=== PATIENT | female | born 1980 | race Caucasian/White ===

== ENCOUNTER → 2023-01-03 13:58 | Outpatient (BNVA) | payer MEDICARE, MEDICAID, SELFPAY | PROVIDERS: Family Provider Nurse Practitioner; Visit Provider Nurse Practitioner Family | DX: E78.5 Hyperlipidemia, unspecified (principal); E03.9 Hypothyroidism, unspecified; I10 Essential (primary) hypertension | CPT/HCPCS: 80053; 80061; 84443; 85025 ==

== ENCOUNTER → 2023-04-12 11:16 | Outpatient (BNVA) | payer MEDICARE, MEDICAID, SELFPAY | PROVIDERS: Family Provider Nurse Practitioner; PCP Nurse Practitioner Family; Visit Provider Nurse Practitioner Family | DX: E78.5 Hyperlipidemia, unspecified (principal); I10 Essential (primary) hypertension | CPT/HCPCS: 80053; 80061; 84443; 85025 ==

== ENCOUNTER → 2023-06-02 11:29 | Outpatient (BNVA) | payer MEDICARE, MEDICAID, SELFPAY | PROVIDERS: PCP Nurse Practitioner Family; Visit Provider Nurse Practitioner Family | DX: M79.89 Other specified soft tissue disorders (principal); R23.8 Other skin changes | CPT/HCPCS: 80053; 85025 ==

== ENCOUNTER 2023-06-27 15:33 | Outpatient (CLI) | payer MEDICARE, MEDICAID, SELFPAY ==
--- NOTE | 2023-06-27 15:45 | XRR_ITS ---
PROCEDURE INFORMATION: Exam: XR Cervical Spine Exam date and time: 06/27/2023 3:52 PM Age: 42 years old Clinical indication: Pain; Cervicalgia; Additional info: M54.2 - cervicalgia TECHNIQUE: Imaging protocol: Radiologic exam of the cervical spine. Views: 2 or 3 views. COMPARISON: CR XR shoulder RT min 2V* [id number] 06/27/2023 3:52 PM FINDINGS: Bones/joints: Normal. No acute fracture. Normal alignment. Soft tissues: Unremarkable. XR/XR cervical spine 3V* [id number] IMPRESSION: No acute findings.
--- NOTE | 2023-06-27 15:45 | XRR_ITS ---
PROCEDURE INFORMATION: Exam: XR Right Shoulder Exam date and time: 06/27/2023 3:52 PM Age: 42 years old Clinical indication: Pain; Shoulder; Right; Additional info: M25.511 - pain in right shoulder TECHNIQUE: Imaging protocol: Radiologic exam of the right shoulder. Views: 2 or more views. COMPARISON: CR XR cervical spine 3V* [id number] 06/27/2023 3:52 PM FINDINGS: Bones/joints: Mild arthritis right AC joint. Otherwise, unremarkable. Soft tissues: Normal. XR/XR shoulder RT min 2V* [id number] IMPRESSION: No acute findings.
== END 2023-06-27 15:34 | disposition home or self-care (01) ==
LOC: RAD 15:34
PROVIDERS: PCP Nurse Practitioner Family; Visit Provider Nurse Practitioner Family
DX: M54.2 Cervicalgia (principal); G89.29 Other chronic pain; R20.0 Anesthesia of skin; M25.511 Pain in right shoulder
CPT/HCPCS: 72040; 73030

== ENCOUNTER 2023-07-08 17:22 | Emergency (ER) | payer MEDICARE, MEDICAID, SELFPAY ==
[2023-07-08 17:26] VITALS: BP 115/78; PULSE 86; RESP 18; TEMP 38; O2SAT 100
--- NOTE | 2023-07-08 17:47 | ED_ITS ---
HPI - Fever 2 General: Chief Complaint: Fever Stated Complaint: fever, weakness, N Time Seen by Provider: 07/08/23 17:44 History of Present Illness: 42-year-old female who presents the [facility] room with a fever. She has not been feeling well for about a week now she says. Some mild nausea but she states has been drinking lots of water. She says she feels constipated. No focal abdominal pain. Family states that she seems kind of confused. Has been having malaise. Review of Systems 2 Narrative: Constitutional symptoms: Negative except as documented in HPI. Skin symptoms: Negative except as documented in HPI. Eye symptoms: Negative except as documented in HPI. ENMT symptoms: Negative except as documented in HPI. Respiratory symptoms: Negative except as documented in HPI. Cardiovascular symptoms: Negative except as documented in HPI. Gastrointestinal symptoms: Negative except as documented in HPI. Genitourinary symptoms: Negative except as documented in HPI. Musculoskeletal symptoms: Negative except as documented in HPI. Neurologic symptoms: Negative except as documented in HPI. Psychiatric symptoms: Negative except as documented in HPI. Endocrine symptoms: Negative except as documented in HPI. PFSH ED 2 PFSH: Medical History Hypothyroid PTSD (post-traumatic stress disorder) Anxiety and depression Hyperlipidemia GERD (gastroesophageal reflux disease) Essential hypertension Surgical History History of tonsillectomy and adenoidectomy History of nasal surgery History of mandibular surgery Hx of appendectomy Social History Smoking and tobacco/nicotine status: current every day tobacco/nicotine user Alcohol intake: never Substance/Drug Use: current Substance/Drug use frequency: daily Adopted: No Caregiver/support person: No Lives independently: Yes Household members: family Housing: House Marital status: Single Number of children: 0 Highest education level completed: 10th Grade service: No Current occupational status: disabled Female Reproductive History: Date of last menstrual period: 06/07/23 Physical Exam 2 Narrative: EXAM NARRATIVE: General: Alert, no acute distress. Skin: Warm, dry. Head: Normocephalic, atraumatic. Neck: Supple, trachea midline. Eye: Extraocular movements are intact. Ears, nose, mouth and throat: mucosa moist. Cardiovascular: Regular, Normal peripheral perfusion. Respiratory: Lungs are clear to auscultation, respirations are non-labored, breath sounds are equal, Symmetrical chest wall expansion. Gastrointestinal: Soft, Nontender, Non distended, Normal bowel sounds. Musculoskeletal: Normal ROM, no deformity. Neurological: Alert and oriented to person, place, time, and situation, No focal neurological deficit observed. Psychiatric: Cooperative, appropriate mood & affect. Course 2 Vital Signs: Vital signs: Vital Signs Temperature 100.4 F H 07/08/23 17:26 Pulse Rate 82 07/08/23 18:45 Respiratory Rate 16 07/08/23 18:45 Blood Pressure 113/67 07/08/23 18:45 Pulse Oximetry 100 07/08/23 18:45 Oxygen Delivery Me thod Room Air 07/08/23 17:26 MDM - Fever Medical Decision Making Medical decision making: Differential diagnosis including but not limited to: Febrile illness might include UTI, pneumonia, flu, COVID, other viral illness.. Workup based on differential diagnosis: Chest x-ray, flu and COVID swabs, urinalysis. Patient access some mild leukopenia which might indicate more of a viral illness. However her urine does appear infected. She also appears dehydrated on exam. Fluids and Rocephin are being given. Chest x-ray: No acute process. No pneumothorax. No infiltrate. No cardiomegaly. This was reviewed and interpreted by myself the ER physician. Lab Data 07/08/23 17:52 07/08/23 17:52 Radiology Impressions Chest X-Ray 07/08/23 18:10 IMPRESSION: No acute findings. Laboratory Results WBC 2.90 10^3/uL (3.29-11.43) L 07/08/23 17:52 RBC 4.59 10^6/uL (3.85-5.65) 07/08/23 17:52 Hgb 14.90 g/dL (11.27-16.99) 07/08/23 17:52 Hct 44.3 % (36-47) 07/08/23 17:52 MCV 96.5 fl (85-98) 07/08/23 17:52 MCH 32.5 pg (27-33) 07/08/23 17:52 MCHC 33.6 g/dL (30-55) 07/08/23 17:52 RDW 14.0 % (12.1-15.1) 07/08/23 17:52 Plt Count 182 10^3/cmm (157-399) 07/08/23 17:52 MPV 12.3 fL (7.4-10.4) H 07/08/23 17:52 Neut % (Auto) 65.3 % 07/08/23 17:52 Lymph % (Auto) 31.0 % 07/08/23 17:52 [place] % (Auto) 2.4 % 07/08/23 17:52 Eos % (Auto) 0.3 % 07/08/23 17:52 Baso % (Auto) 0.3 % 07/08/23 17:52 Neut # (Auto) 1.89 10^3/uL (1.8-7.7) 07/08/23 17:52 Lymph # (Auto) 0.9 10^3/uL (0.8-4.8) 07/08/23 17:52 [place] # (Auto) 0.1 10^3/uL (0.2-0.9) L 07/08/23 17:52 Eos # (Auto) 0.0 10^3/uL (0.0-0.8) 07/08/23 17:52 Baso # (Auto) 0.0 10^3/uL (0.0-0.1) 07/08/23 17:52 Nucleated RBC % (auto) 0 % 07/08/23 17:52 Nucleated RBCs # 0.0 /100WBC 07/08/23 17:52 Sodium 134 mmol/L (136-145) L 07/08/23 17:52 Potassium 3.6 mmol/L (3.5-5.1) 07/08/23 17:52 Chloride 97 mmol/L (98-107) L 07/08/23 17:52 Carbon Dioxide 25 mmol/L (22-29) 07/08/23 17:52 Anion Gap 15.6 (5-19) 07/08/23 17:52 BUN 10 mg/dL (6-20) 07/08/23 17:52 Creatinine 0.7 mg/dL (0.5-0.9) 07/08/23 17:52 GFR Calculation 90.9 mL/min (90-130) 07/08/23 17:52 Glucose 90 mg/dL (65-115) 07/08/23 17:52 Calculated Osmolality 277 mOsm/kg (285-295) L 07/08/23 17:52 Calcium 8.6 mg/dL (8.5-10.5) 07/08/23 17:52 Total Bilirubin 0.2 mg/dL (0.15-1.2) 07/08/23 17:52 AST 25 U/L (0-32) 07/08/23 17:52 ALT 14 U/L (0-33) 07/08/23 17:52 Alkaline Phosphatase 168 U/L (35-105) H 07/08/23 17:52 Total Protein 7.5 g/dL (6.6-8.7) 07/08/23 17:52 Albumin 4.1 g/dL (3.5-5.2) 07/08/23 17:52 Globulin 3.4 g/dL (1.3-4.6) 07/08/23 17:52 Urine Color Matilde (Yellow) 07/08/23 18:15 Urine Appearance Hazy (CLEAR) A 07/08/23 18:15 Urine pH 5 (5-7) 07/08/23 18:15 Ur Specific [place] 1.015 (1.005-1.030) 07/08/23 18:15 Urine Protein 1+ (Negative) H 07/08/23 18:15 Urine Glucose (UA) Norm (Normal) 07/08/23 18:15 Urine Ketones 1+ (Negative) H 07/08/23 18:15 Urine Blood 2+ (Negative) H 07/08/23 18:15 Urine Nitrate Positive (Negative) H 07/08/23 18:15 Urine Bilirubin 1+ (Negative) H 07/08/23 18:15 Urine Urobilinogen 4 mg/dL (Negative) H 07/08/23 18:15 Ur Leukocyte Esterase 1+ (Negative) H 07/08/23 18:15 Urine RBC 5-10 /hpf (0-2) H 07/08/23 18:15 Urine WBC 15-25 /hpf (0-5) H 07/08/23 18:15 Ur Squamous Epith Cells 15-25 /hpf (0-5) H 07/08/23 18:15 Amorphous Sediment 1+ /hpf 07/08/23 18:15 Urine Bacteria 1+ /hpf (NONE) H 07/08/23 18:15 Hyaline Casts 0-4 /lpf H 07/08/23 18:15 Coarse Granular Casts 0-4 /lpf H 07/08/23 18:15 Urine Mucus 1+ /hpf 07/08/23 18:15 Influenza Type A Ag negative (Negative) 07/08/23 18:15 Influenza Type B Ag negative (Negative) 07/08/23 18:15 All radiology interpretation(s) finalized by discharge Other Data - Normal saline bolus and IV Rocephin in the emergency room. - Discharged home - Discussed findings and plan with patient. Answered any questions. - All laboratory values were reviewed and interpreted personally by myself, the ER physician - All imaging was reviewed and interpreted personally by myself, the ER physician. - Evaluation and treatment of this problem were appropriate in the emergency setting Discharge Plan Discharge Patient Disposition: Home Clinical Impression: Urinary tract infection, Dehydration Condition: Stable Prescriptions: New cefdinir 300 mg capsule 300 mg PO BID 7 Days Qty: 14 0RF No Action hydroxyzine HCl 50 mg tablet 50 mg PO TID promethazine 25 mg tablet 25 mg PO ONCE PRN Rx Instructions: Take 1 tablet by mouth daily as needed for nausea lurasidone [Latuda] 20 mg tablet 20 mg PO DAILY Rx Instructions: Take 1 tablet by mouth in the evening with supper. must administer with food (at least 350 calories) prazosin 1 mg capsule 1 mg PO ONCE Rx Instructions: Take 1 capsule by mouth at bedtime for nightmares. buspirone 15 mg tablet 15 mg PO QID Rx Instructions: Take 1 tablet by mouth four times daily. hydrocodone-acetaminophen 10-325 mg tablet 1 tab PO Q8H PRN Rx Instructions: Take 1 tablet by mouth three times daily as needed. melatonin 10 mg capsule 10 mg PO DAILY diphenhydramine HCl [Benadryl] 25 mg capsule 25 mg PO TID PRN diclofenac sodium [Arthritis Pain (diclofenac)] 1 % gel 2 g topical QID Rx Instructions: apply to single elbow, wrist or hand; for hand includes palm/fingers/back of hand albuterol sulfate 90 mcg/actuation HFA aerosol inhaler 2 puff inhalation QID PRN (Reason: shortness of breath or wheezing) Qty: 6.7 5RF tizanidine 4 mg capsule 4 mg PO TID PRN (Reason: muscle spasticity) Qty: 90 5RF Rx Instructions: Take 1 tablet by mouth three times daily as needed for muscle spasms. ketorolac 10 mg tablet 10 mg PO QID PRN (Reason: pain) 5 Days Qty: 20 0RF clindamycin HCl 300 mg capsule 300 mg PO TID Qty: 30 0RF rosuvastatin 20 mg tablet 20 mg PO DAILY Qty: 90 1RF Rx Instructions: bedtime levothyroxine 25 mcg capsule 25 mcg PO DAILY Qty: 90 1RF prednisone 10 mg tablets,dose pack See Rx Instructions PO PER PKG DIR Qty: 21 0RF Rx Instructions: PO PER PKG DIR pantoprazole [Protonix] 40 mg tablet,delayed release (DR/EC) 40 mg PO DAILY Qty: 30 2RF valsartan 80 mg tablet 80 mg PO .daily am Qty: 90 1RF Rx Instructions: with 40 mg pm to make 120 mg daily valsartan 40 mg tablet 40 mg PO .daily pm Qty: 90 1RF Rx Instructions: with 80 mg am to make 120 mg daily potassium chloride [Klor-Con 10] 10 mEq tablet extended release 10 meq PO DAILY Qty: 30 0RF Discharge Orders: Discharge ED (Routine); Ordered 07/08/23 Ordered By: Naya Radford Referrals: Selam Ghosh FNP-C [Primary Care Provider] - (You have been screened and evaluated and felt safe for discharge. Health conditions do change or evolve sometimes and as such it is important that you follow up with your Primary Doctor to be re checked, 3-5 days is a general good time frame for follow up. You are always welcome to return to the ED for re assessment if your symptoms are worsening or you have new concerns) Discharge Diet: Usual diet Discharge Activity: Resume usual activity Patient Instructions: Opioid Safety, Pain Management, Urinary Tract Infection - Women Coding Level of Care Code ED [place] [facility] for Pooja Neal
[2023-07-08 18:01] LABS: Basophils % 0.3 %; Eosinophils % 0.3 %; Hematocrit 44.3 % (36-47); Lymphocytes # 0.9 10^3/uL (0.8-4.8); Mean Corpuscular HGB Conc 33.6 g/dL (30-55); Mean Corpuscular Hemoglobin 32.5 pg (27-33); Mean Corpuscular Volume 96.5 fl (85-98); Mean Platelet Volume 12.3 fL (7.4-10.4); Monocytes # 0.1 10^3/uL (0.2-0.9); Monocytes % 2.4 %; Neutrophils # 1.89 10^3/uL (1.8-7.7); Neutrophils % 65.3 %; Nucleated Red Blood Cells % 0 %; Platelet Count 182 10^3/cmm (157-399); Red Blood Count 4.59 10^6/uL (3.85-5.65)
--- NOTE | 2023-07-08 18:10 | XRR_ITS ---
PROCEDURE INFORMATION: Exam: XR Chest Exam date and time: 07/08/2023 6:19 PM Age: 42 years old Clinical indication: Patient HX: Fever; Weakness; Copd TECHNIQUE: Imaging protocol: Radiologic exam of the chest. Views: 1 view. COMPARISON: CR XR cervical spine 3V* [id number] 27/06/2023 15:52 FINDINGS: Lungs: Calcified granuloma in the upper left lung. The lungs otherwise are clear. No consolidation. Pleural spaces: Unremarkable. No pleural effusion. No pneumothorax. Heart/Mediastinum: Unremarkable. No cardiomegaly. Bones/joints: Unremarkable. XR/XR chest 1V [id number] IMPRESSION: No acute findings.
[2023-07-08 18:20] LABS: Alanine Aminotransferase 14 U/L (0-33); Albumin Level 4.1 g/dL (3.5-5.2); Alkaline Phosphatase 168 U/L (35-105); Anion Gap 15.6 (5-19); Aspartate Amino Transferase 25 U/L (0-32); Blood Urea Nitrogen 10 mg/dL (6-20); Calcium 8.6 mg/dL (8.5-10.5); Carbon Dioxide 25 mmol/L (22-29); Chloride 97 mmol/L (98-107); Globulin 3.4 g/dL (1.3-4.6); Glomerular Filtration Rate 90.9 mL/min (90-130); Glucose 90 mg/dL (65-115); Osmolality Calculated 277 mOsm/kg (285-295); Potassium 3.6 mmol/L (3.5-5.1); Sodium 134 mmol/L (136-145); Total Bilirubin 0.2 mg/dL (0.15-1.2); Total Protein 7.5 g/dL (6.6-8.7)
[2023-07-08 18:36] LABS: Amorphous Sediment Urine 1+ /hpf; Bacteria Urine 1+ /hpf; Bilirubin Urine 1+ (Negative); Blood Urine 2+ (Negative); Glucose Urine UA Norm (Normal); Ketones Urine 1+ (Negative); Leukocyte Esterase Urine 1+ (Negative); Mucus Urine 1+ /hpf; Nitrate Urine Positive (Negative); Protein Urine 1+ (Negative); Specific Gravity, Urine 1.015 (1.005-1.030); Squamous Epithelial Cell Urine 15-25 /hpf (0-5); Urine Appearance Hazy (CLEAR); Urine Color Amber (Yellow); Urobilinogen Urine 4 mg/dL (Negative); WBC Urine 15-25 /hpf (0-5); pH Urine 5 (5-7)
[2023-07-08 18:37] LABS: Coarse Granular Casts Urine 0-4 /lpf; Hyaline Casts Urine 0-4 /lpf
[2023-07-08 18:42] LABS: Influenza A by IFA negative (Negative); Influenza B by IFA negative (Negative)
[2023-07-08 18:45] VITALS: BP 113/67; PULSE 82; RESP 16; O2SAT 100
[2023-07-08] MEDS: sodium chloride 0.9% 1,000 ML 999 ML IV (19:30)
[2023-07-08] MEDS: cefTRIAXone 1,000 MG in sodium chloride 0.9% (plus) 50 ML 100 MG IV (19:31)
--- NOTE | 2023-07-08 19:37 | PC.NURSE ---
discharge delayed due to antibiotic and fluid infusions still running.
[2023-07-08 19:43] VITALS: BP 106/70; PULSE 82; RESP 14; O2SAT 100
[2023-07-08 20:27] VITALS: BP 106/70; PULSE 82; RESP 14; TEMP 38; O2SAT 100
[2023-07-08 21:55] LABS: Adenovirus Not Detected (NOT DETECT); Chlamydia Pneumoniae Not Detected (NOT DETECT); Coronavirus 229E,HKU1,NL63,OC4 Not Detected (NOT DETECT); Human Metapneumovirus Not Detected (NOT DETECT); Human Rhinovirus/Enterovirus Not Detected (NOT DETECT); Influenza A Not Detected (NOT DETECT); Influenza A H1 Not Detected (NOT DETECT); Influenza A H1-2009 Not Detected (NOT DETECT); Influenza A H3 Not Detected (NOT DETECT); Influenza B Not Detected (NOT DETECT); Mycoplasma Pneumoniae Not Detected (NOT DETECT); Parainfluenza Virus Type 1 Not Detected (NOT DETECT); Parainfluenza Virus Type 2 Not Detected (NOT DETECT); Parainfluenza Virus Type 3 Not Detected (NOT DETECT); Parainfluenza Virus Type 4 Not Detected (NOT DETECT); Respiratory Syncytial Virus A Not Detected (NOT DETECT); Respiratory Syncytial Virus B Not Detected (NOT DETECT); SARS-COV-2 Not Detected (NOT DETECT)
== END 2023-07-08 20:27 | disposition home or self-care (01) ==
PROVIDERS: Emergency Provider Emergency Medicine; PCP Nurse Practitioner Family
DX: N39.0 Urinary tract infection, site not specified (principal); E86.0 Dehydration; Z72.0 Tobacco use; E78.5 Hyperlipidemia, unspecified; I10 Essential (primary) hypertension; Z11.52 Encounter for screening for COVID-19
CPT/HCPCS: 36415; 71045; 80053; 81001; 85025; 87635; 87804; 96365; 99284; J0696; J7030

== ENCOUNTER 2023-07-12 19:04 | Emergency (ER) | payer MEDICARE, MEDICAID, SELFPAY ==
[2023-07-12 19:15] VITALS: BP 93/65; PULSE 92; RESP 16; TEMP 39.2; O2SAT 99; BMI 25.9
[2023-07-12] MEDS: metoclopramide 5 mg/mL SDV 2 mL 10 MG IVP (19:51)
[2023-07-12] MEDS: sodium chloride 0.9% 1,000 ML 999 ML IV (19:51)
--- NOTE | 2023-07-12 20:04 | ED_ITS ---
Documented by User: CRISTEL Carrillo 07/12/23 23:52 HPI - Female Genitourinary 2 General: Chief complaint: Urogenital-Female Stated complaint: UTI Time Seen by Provider: 07/12/23 19:26 Source: patient and family Mode of arrival: wheelchair Limitations: no limitations History of Present Illness: Patient presents emergency department today companied by family for evaluation treatment of worsening symptoms of back pain, nausea, fever, weakness. Patient was originally seen and evaluated for similar symptoms back on 07/08. She was diagnosed with dehydration and urinary tract infection. Chart review shows no significant abnormalities to her GFR or creatinine at that time but, did have a nitrite positive UTI. I do not see where urine culture has been run and I see no results for sensitivities. Patient was treated with fluids and Rocephin and discharged with Omnicef. Patient states she has been taking her medications without improvement of her symptoms. Patient has had very little oral intake due to upset stomach and nausea. She continues to complain of mid back pain and states that yesterday she passed out 3 different times. She complains of headache and continued fevers. She has been taking Tylenol which helps with symptoms for about 2 hours. Review of Systems 2 General: Reports: 10 or more systems reviewed and unremarkable except in HPI and below PFSH ED 2 PFSH: Medical History Hypothyroid PTSD (post-traumatic stress disorder) Anxiety and depression Hyperlipidemia GERD (gastroesophageal reflux disease) Essential hypertension Surgical History History of tonsillectomy and adenoidectomy History of nasal surgery History of mandibular surgery Hx of appendectomy Social History Smoking and tobacco/nicotine status: current every day tobacco/nicotine user Alcohol intake: never Substance/Drug Use: current Substance/Drug use frequency: daily Adopted: No Caregiver/support person: No Lives independently: Yes Household members: family Housing: House Marital status: Single Number of children: 0 Highest education level completed: 10th Grade service: No Current occupational status: disabled Physical Exam 2 Const: COMMON NORMALS: no acute distress (But looks fatigued.), patient oriented x3 and alert OTHER: Patient is febrile HENMT: COMMON NORMALS: normocephalic, atraumatic, hearing grossly normal bilaterally and moist oral mucous membranes HEAD & SCALP: normocephalic and atraumatic Eye: COMMON NORMALS: Equal, round and reactive pupils present, EOMs intact bilaterally and conjunctivae normal CONJUNCTIVA: Yes conjunctivae normal P UPIL: Yes Equal, round and reactive pupils present Neck/C-Spine: COMMON NORMALS: no JVD Lymph: LYMPHATIC: no lymphadenopathy noted Resp: COMMON NORMALS: normal respiratory effort, No retractions and No use of accessory muscles Cardio: COMMON NORMALS: no JVD and regular rate RATE: regular rate Back/Pelvis: OTHER: Patient with bilateral CVA tenderness with right worse than left. Extremity: COMMON NORMALS: normal to inspection, full ROM and capillary refill normal NARRATIVE EXTREMITY EXAM: Patient is able to stand and ambulate from the wheelchair to the recliner. Neuro: COMMON NORMALS: patient oriented x3 SENSORIUM/ORIENTATION: Yes alert Psych: COMMON NORMALS: mental status grossly normal, cooperative, normal affect, speech normal and activity/motor behavior normal SPEECH: Yes normal speech Course 2 Vital Signs: Vital signs: Vital Signs Temperature 102.6 F H 07/12/23 19:15 Pulse Rate 75 07/12/23 23:51 Respiratory Rate 16 07/12/23 19:15 Blood Pressure 103/57 07/12/23 23:51 Pulse Oximetry 98 07/12/23 23:51 Oxygen Delivery Me thod Room Air 07/12/23 22:40 MDM - Female Medical Decision Making Patient presented to the emergency department today for worsening of back pain, fatigue, and fever. Chart review showed patient was treated with antibiotics for a nitrite positive UTI and states she has continued to take the antibiotics. Patient's urine specimen today still shows a little bacteria but is notably improved from several days ago. Patient's lab work in general is improved as well but, patient indicates she is feeling worse and, patient is febrile today. Patient's lactic and procalcitonin are both negative. I am suspicious patient may also have a different source of infection than just UTI at this time. I discussed with patient imaging of her chest to rule out pneumonia. I also requested to scan her abdomen to look for pyelonephritis or other causes of her symptoms. We also ran a respiratory panel. Patient's chest x-ray showed no signs of pneumonia. CT showed no signs of pyelonephritis and indicated nothing acute in the abdomen however, patient has a noticeable increase in colonic stool in the transverse colon region. This could correlate with her area of discomfort in her back. However, would not explain the fever. As we supportively have several hours to wait on the respiratory swab we discussed discharge at this time to increase fluids, continue antibiotics, and treat symptomatically. We will call and notify them of the respiratory swab results. Patient had several concerns while she was here including her blood pressure but, in general, patient's blood pressure was stable-lower readings after she had been moved to a room and placed in a reclining or lying down position in the bed. I did speak with Dr. Childress regarding this case. He indicated we had covered all bases here in the ER today and would encourage patient to take her antibiotics, push fluids, and continue to monitor at home. Discussed all this with the patient and her mother who verbalized understanding and agreement to treatment plan. Differential Diagnosis Likely abdominal pain and constipation; Unlikely acute appendicitis, calculus of kidney, diverticulitis, endometriosis, gastroenteritis, pancreatitis or small bowel obstruction Lab Data 07/12/23 19:51 07/12/23 19:51 Radiology Impressions Chest X-Ray 07/12/23 21:21 IMPRESSION: No focal consolidation. Abdomen/Pelvis CT 07/12/23 21:22 IMPRESSION: 1. No bowel obstruction or inflammatory process associated with the bowel. 2. No free air or significant free fluid in the abdomen or pelvis. 3. The appendix is not visualized but there are no secondary signs of acute appendicitis. Laboratory Results WBC 3.89 10^3/uL (3.29-11.43) 07/12/23 19:51 RBC 4.04 10^6/uL (3.85-5.65) 07/12/23 19:51 Hgb 13.10 g/dL (11.27-16.99) 07/12/23 19: Hct 37.8 % (36-47) 07/12/23 19:51 MCV 93.6 fl (85-98) 07/12/23 19:51 MCH 32.4 pg (27-33) 07/12/23 19: MCHC 34.7 g/dL (30-55) 07/12/23 19:51 RDW 13.7 % (12.1-15.1) 07/12/23 19:51 Plt Count 203 10^3/cmm (157-399) 07/12/23 19:51 MPV 13.1 fL (7.4-10.4) H 07/12/23 19:51 Neut % (Auto) 62.5 % 07/12/23 19:51 Lymph % (Auto) 32.6 % 07/12/23 19:51 Ocean % (Auto) 3.3 % 07/12/23 19:51 Eos % (Auto) 1.0 % 07/12/23 19:51 Baso % (Auto) 0.3 % 07/12/23 19:51 Neut # (Auto) 2.43 10^3/uL (1.8-7.7) 07/12/23 19:51 Lymph # (Auto) 1.3 10^3/uL (0.8-4.8) 07/12/23 19:51 Ocean # (Auto) 0.1 10^3/uL (0.2-0.9) L 07/12/23 19:51 Eos # (Auto) 0.0 10^3/uL (0.0-0.8) 07/12/23 19:51 Baso # (Auto) 0.0 10^3/uL (0.0-0.1) 07/12/23 19:51 Nucleated RBC % (auto) 0 % 07/12/23 19:51 Nucleated RBCs # 0.0 /100WBC 07/12/23 19:51 Sodium 137 mmol/L (136-145) 07/12/23 19:51 Potassium 3.2 mmol/L (3.5-5.1) L 07/12/23 19:51 Chloride 103 mmol/L (98-107) 07/12/23 19:51 Carbon Dioxide 23 mmol/L (22-29) 07/12/23 19:51 Anion Gap 14.2 (5-19) 07/12/23 19:51 BUN 9 mg/dL (6-20) 07/12/23 19:51 Creatinine 0.6 mg/dL (0.5-0.9) 07/12/23 19:51 GFR Calculation 108.1 mL/min (90-130) 07/12/23 19:51 Glucose 97 mg/dL (65-115) 07/12/23 19:51 Calculated Osmolality 283 mOsm/kg (285-295) L 07/12/23 19:51 Lactic Acid 2.1 mmol/L (0.5-2.2) 07/12/23 19:51 Lactic Acid (Sepsis) 0.9 mmol/L (0.5-2.2) 07/12/23 22:59 Calcium 8.1 mg/dL (8.5-10.5) L 07/12/23 19:51 Total Bilirubin 0.3 mg/dL (0.15-1.2) 07/12/23 19:51 AST 26 U/L (0-32) 07/12/23 19:51 ALT 15 U/L (0-33) 07/12/23 19:51 Alkaline Phosphatase 270 U/L (35-105) H 07/12/23 19:51 Total Protein 6.1 g/dL (6.6-8.7) L 07/12/23 19:51 Albumin 3.4 g/dL (3.5-5.2) L 07/12/23 19:51 Globulin 2.7 g/dL (1.3-4.6) 07/12/23 19:51 Procalcitonin 0.22 ng/mL (0-0.5) 07/12/23 19:51 Urine Color Yellow (Yellow) 07/12/23 20:23 Urine Appearance Clear (CLEAR) 07/12/23 20:23 Urine pH 6 (5-7) 07/12/23 20:23 Ur Specific [place] 1.015 (1.005-1.030) 07/12/23 20:23 Urine Protein Neg (Negative) 07/12/23 20:23 Urine Glucose (UA) Norm (Normal) 07/12/23 20:23 Urine Ketones 1+ (Negative) H 07/12/23 20:23 Urine Blood 2+ (Negative) H 07/12/23 20:23 Urine Nitrate Negative (Negative) 07/12/23 20:23 Urine Bilirubin 1+ (Negative) H 07/12/23 20:23 Urine Urobilinogen 1 mg/dL (Negative) H 07/12/23 20:23 Ur Leukocyte Esterase Negative (Negative) 07/12/23 20:23 Urine RBC 0-4 /hpf (0-2) H 07/12/23 20:23 Urine WBC None /hpf (0-5) 07/12/23 20:23 Ur Squamous Epith Cells 10-15 /hpf (0-5) H 07/12/23 20:23 Amorphous Sediment Not Reportable 07/12/23 20:23 Urine Bacteria 1+ /hpf (NONE) H 07/12/23 20:23 Urine Mucus 2+ /hpf 07/12/23 20:23 Adenovirus (PCR) Not detected (NOT DETECT) 07/12/23 22:37 C. pneumoniae DNA (PCR) Not detected (NOT DETECT) 07/12/23 22:37 Coronavirus 229E (PCR) Not detected (NOT DETECT) 07/12/23 22:37 Human Metapneumovir PCR Not detected (NOT DETECT) 07/12/23 22:37 Influenza A (H1) PCR Not detected (NOT DETECT) 07/12/23 22:37 Influ A (H1/09) PCR Not detected (NOT DETECT) 07/12/23 22:37 Influenza A (H3) PCR Not detected (NOT DETECT) 07/12/23 22:37 Influenza Type A (PCR) Not detected (NOT DETECT) 07/12/23 22:37 Influenza Type B (PCR) Not detected (NOT DETECT) 07/12/23 22:37 M. pneumoniae (PCR) Not detected (NOT DETECT) 07/12/23 22:37 Parainfluenza 1 (PCR) Not detected (NOT DETECT) 07/12/23 22:37 Parainfluenza 2 (PCR) Not detected (NOT DETECT) 07/12/23 22:37 Parainfluenza 3 (PCR) Not detected (NOT DETECT) 07/12/23 22:37 Parainfluenza 4 (PCR) Not detected (NOT DETECT) 07/12/23 22:37 RSV Type A (PCR) Not detected (NOT DETECT) 07/12/23 22:37 RSV Type B (PCR) Not detected (NOT DETECT) 07/12/23 22:37 Entero/Rhino (PCR) Not detected (NOT DETECT) 07/12/23 22:37 SARS-CoV-2 (PCR) Not detected (NOT DETECT) 07/12/23 22:37 All radiology interpretation(s) finalized by discharge Discharge Plan Discharge Patient Disposition: Home Clinical Impression: UTI (urinary tract infection), Fever in adult, Constipation Condition: Stable Prescriptions: New cyclobenzaprine 10 mg tablet 10 mg PO TID Qty: 14 0RF prednisone 10 mg tablet 10 mg PO DAILY Qty: 7 0RF polyethylene glycol 3350 17 gram/dose powder 17 g PO DAILY Qty: 238 0RF No Action hydroxyzine HCl 50 mg tablet 50 mg PO TID promethazine 25 mg tablet 25 mg PO ONCE PRN Rx Instructions: Take 1 tablet by mouth daily as needed for nausea lurasidone [Latuda] 20 mg tablet 20 mg PO DAILY Rx Instructions: Take 1 tablet by mouth in the evening with supper. must administer with food (at least 350 calories) prazosin 1 mg capsule 1 mg PO ONCE Rx Instructions: Take 1 capsule by mouth at bedtime for nightmares. buspirone 15 mg tablet 15 mg PO QID Rx Instructions: Take 1 tablet by mouth four times daily. hydrocodone-acetaminophen 10-325 mg tablet 1 tab PO Q8H PRN Rx Instructions: Take 1 tablet by mouth three times daily as needed. melatonin 10 mg capsule 10 mg PO DAILY diphenhydramine HCl [Benadryl] 25 mg capsule 25 mg PO TID PRN diclofenac sodium [Arthritis Pain (diclofenac)] 1 % gel 2 g topical QID Rx Instructions: apply to single elbow, wrist or hand; for hand includes palm/fingers/back of hand albuterol sulfate 90 mcg/actuation HFA aerosol inhaler 2 puff inhalation QID PRN (Reason: shortness of breath or wheezing) Qty: 6.7 5RF tizanidine 4 mg capsule 4 mg PO TID PRN (Reason: muscle spasticity) Qty: 90 5RF Rx Instructions: Take 1 tablet by mouth three times daily as needed for muscle spasms. ketorolac 10 mg tablet 10 mg PO QID PRN (Reason: pain) 5 Days Qty: 20 0RF clindamycin HCl 300 mg capsule 300 mg PO TID Qty: 30 0RF rosuvastatin 20 mg tablet 20 mg PO DAILY Qty: 90 1RF Rx Instructions: bedtime levothyroxine 25 mcg capsule 25 mcg PO DAILY Qty: 90 1RF prednisone 10 mg tablets,dose pack See Rx Instructions PO PER PKG DIR Qty: 21 0RF Rx Instructions: PO PER PKG DIR pantoprazole [Protonix] 40 mg tablet,delayed release (DR/EC) 40 mg PO DAILY Qty: 30 2RF valsartan 80 mg tablet 80 mg PO .daily am Qty: 90 1RF Rx Instructions: with 40 mg pm to make 120 mg daily valsartan 40 mg tablet 40 mg PO .daily pm Qty: 90 1RF Rx Instructions: with 80 mg am to make 120 mg daily potassium chloride [Klor-Con 10] 10 mEq tablet extended release 10 meq PO DAILY Qty: 30 0RF cefdinir 300 mg capsule 300 mg PO BID 7 Days Qty: 14 0RF Discharge Orders: Discharge ED (Routine); Ordered 07/12/23 Ordered By: Rocio Gonsalves Referrals: Selam Ghosh FNP-C [Primary Care Provider] - Discharge Diet: Usual diet Discharge Activity: Increase activity as tolerated Patient Instructions: Constipation - Adult, Urinary Tract Infection in Women (ED), Fever in Adults (ED) Activity Restrictions/Additional Instructions: Overall, your lab work is stable and somewhat improved from a couple days ago. Your urinalysis still shows a small amount of bacteria present in your urine however, it is again improved from a couple days ago. I encourage you to continue taking your antibiotics as prescribed as it does seem to be working. We are running cultures off of your lab work and your urine specimens from today to evaluate further. I think that your worsening symptoms and fever may be related to a superimposed viral illness and, we are running a respiratory panel to check further. We should have these results in several hours. Your chest x- ray shows no signs of any concerns for accumulation concerning for pneumonia. Your abdominal scan does show a significant amount of retained stool across her upper abdomen which is often felt in your mid back as this is all at the same level in your abdomen. I am providing you medication called polyethylene glycol. 1 capful of this medication is equal to 17 g. For the next day or 2 I recommend taking a capful of medication 2 or 3 times a day mixed in 8 ounces of clear fluids to be drink all at once. I also encourage you to increase your clear fluid intake substantially during this time. I am providing you medication which will also help with your overall body aches. I encourage you to follow-up with your primary care doctor at the end of the week for recheck. However, if you are unable to tolerate medications or have change or worsening in your symptoms, you need to be seen and reevaluated back in the ER. Coding Level of Care Code ED [facility] Architect for Chg Fwd Documented by User: Jean Childress MD 07/13/23 05:53 HPI - Female Genitourinary 2 General: Chief complaint: Urogenital-Female Stated complaint: UTI Time Seen by Provider: 07/12/23 19:26 PFSH ED 2 PFSH: Medical History Hypothyroid PTSD (post-traumatic stress disorder) Anxiety and depression Hyperlipidemia GERD (gastroesophageal reflux disease) Essential hypertension Surgical History History of tonsillectomy and adenoidectomy History of nasal surgery History of mandibular surgery Hx of appendectomy Social History Smoking and tobacco/nicotine status: current every day tobacco/nicotine user Alcohol intake: never Substance/Drug Use: current Substance/Drug use frequency: daily Adopted: No Caregiver/support person: No Lives independently: Yes Household members: family Housing: House Marital status: Single Number of children: 0 Highest education level completed: 10th Grade service: No Current occupational status: disabled Course 2 Vital Signs: Vital signs: Vital Signs Temperature 102.6 F H 07/12/23 19:15 Pulse Rate 75 07/12/23 23:51 Respiratory Rate 16 07/12/23 19:15 Blood Pressure 103/57 07/12/23 23:51 Pulse Oximetry 98 07/12/23 23:51 Oxygen Delivery Me thod Room Air 07/12/23 22:40 MDM - Female Lab Data I reviewed the patient's lab results. 07/12/23 19:51 07/12/23 19:51 Radiology Impressions Chest X-Ray 07/12/23 21:21 IMPRESSION: No focal consolidation. Abdomen/Pelvis CT 07/12/23 21:22 IMPRESSION: 1. No bowel obstruction or inflammatory process associated with the bowel. 2. No free air or significant free fluid in the abdomen or pelvis. 3. The appendix is not visualized but there are no secondary signs of acute appendicitis. Laboratory Results WBC 3.89 10^3/uL (3.29-11.43) 07/12/23 19:51 RBC 4.04 10^6/uL (3.85-5.65) 07/12/23 19:51 Hgb 13.10 g/dL (11.27-16.99) 07/12/23 19:51 Hct 37.8 % (36-47) 07/12/23 19:51 MCV 93.6 fl (85-98) 07/12/23 19:51 MCH 32.4 pg (27-33) 07/12/23 19:51 MCHC 34.7 g/dL (30-55) 07/12/23 19:51 RDW 13.7 % (12.1-15.1) 07/12/23 19:51 Plt Count 203 10^3/cmm (157-399) 07/12/23 19:51 MPV 13.1 fL (7.4-10.4) H 07/12/23 19:51 Neut % (Auto) 62.5 % 07/12/23 19:51 Lymph % (Auto) 32.6 % 07/12/23 19:51 Ocean % (Auto) 3.3 % 07/12/23 19:51 Eos % (Auto) 1.0 % 07/12/23 19:51 Baso % (Auto) 0.3 % 07/12/23 19:51 Neut # (Auto) 2.43 10^3/uL (1.8-7.7) 07/12/23 19:51 Lymph # (Auto) 1.3 10^3/uL (0.8-4.8) 07/12/23 19:51 Ocean # (Auto) 0.1 10^3/uL (0.2-0.9) L 07/12/23 19:51 Eos # (Auto) 0.0 10^3/uL (0.0-0.8) 07/12/23 19:51 Baso # (Auto) 0.0 10^3/uL (0.0-0.1) 07/12/23 19:51 Nucleated RBC % (auto) 0 % 07/12/23 19:51 Nucleated RBCs # 0.0 /100WBC 07/12/23 19:51 Sodium 137 mmol/L (136-145) 07/12/23 19:51 Potassium 3.2 mmol/L (3.5-5.1) L 07/12/23 19:51 Chloride 103 mmol/L (98-107) 07/12/23 19:51 Carbon Dioxide 23 mmol/L (22-29) 07/12/23 19:51 Anion Gap 14.2 (5-19) 07/12/23 19:51 BUN 9 mg/dL (6-20) 07/12/23 19:51 Creatinine 0.6 mg/dL (0.5-0.9) 07/12/23 19:51 GFR Calculation 108.1 mL/min (90-130) 07/12/23 19:51 Glucose 97 mg/dL (65-115) 07/12/23 19:51 Calculated Osmolality 283 mOsm/kg (285-295) L 07/12/23 19:51 Lactic Acid 2.1 mmol/L (0.5-2.2) 07/12/23 19:51 Lactic Acid (Sepsis) 0.9 mmol/L (0.5-2.2) 07/12/23 22:59 Calcium 8.1 mg/dL (8.5-10.5) L 07/12/23 19:51 Total Bilirubin 0.3 mg/dL (0.15-1.2) 07/12/23 19:51 AST 26 U/L (0-32) 07/12/23 19:51 ALT 15 U/L (0-33) 07/12/23 19:51 Alkaline Phosphatase 270 U/L (35-105) H 07/12/23 19:51 Total Protein 6.1 g/dL (6.6-8.7) L 07/12/23 19:51 Albumin 3.4 g/dL (3.5-5.2) L 07/12/23 19:51 Globulin 2.7 g/dL (1.3-4.6) 07/12/23 19:51 Procalcitonin 0.22 ng/mL (0-0.5) 07/12/23 19:51 Urine Color Yellow (Yellow) 07/12/23 20:23 Urine Appearance Clear (CLEAR) 07/12/23 20:23 Urine pH 6 (5-7) 07/12/23 20:23 Ur Specific [place] 1.015 (1.005-1.030) 07/12/23 20:23 Urine Protein Neg (Negative) 07/12/23 20:23 Urine Glucose (UA) Norm (Normal) 07/12/23 20:23 Urine Ketones 1+ (Negative) H 07/12/23 20:23 Urine Blood 2+ (Negative) H 07/12/23 20:23 Urine Nitrate Negative (Negative) 07/12/23 20:23 Urine Bilirubin 1+ (Negative) H 07/12/23 20:23 Urine Urobilinogen 1 mg/dL (Negative) H 07/12/23 20:23 Ur Leukocyte Esterase Negative (Negative) 07/12/23 20:23 Urine RBC 0-4 /hpf (0-2) H 07/12/23 20:23 Urine WBC None /hpf (0-5) 07/12/23 20:23 Ur Squamous Epith Cells 10-15 /hpf (0-5) H 07/12/23 20:23 Amorphous Sediment Not Reportable 07/12/23 20:23 Urine Bacteria 1+ /hpf (NONE) H 07/12/23 20:23 Urine Mucus 2+ /hpf 07/12/23 20:23 Adenovirus (PCR) Not detected (NOT DETECT) 07/12/23 22:37 C. pneumoniae DNA (PCR) Not detected (NOT DETECT) 07/12/23 22:37 Coronavirus 229E (PCR) Not detected (NOT DETECT) 07/12/23 22:37 Human Metapneumovir PCR Not detected (NOT DETECT) 07/12/23 22:37 Influenza A (H1) PCR Not detected (NOT DETECT) 07/12/23 22:37 Influ A (H1/09) PCR Not detected (NOT DETECT) 07/12/23 22:37 Influenza A (H3) PCR Not detected (NOT DETECT) 07/12/23 22:37 Influenza Type A (PCR) Not detected (NOT DETECT) 07/12/23 22:37 Influenza Type B (PCR) Not detected (NOT DETECT) 07/12/23 22:37 M. pneumoniae (PCR) Not detected (NOT DETECT) 07/12/23 22:37 Parainfluenza 1 (PCR) Not detected (NOT DETECT) 07/12/23 22:37 Parainfluenza 2 (PCR) Not detected (NOT DETECT) 07/12/23 22:37 Parainfluenza 3 (PCR) Not detected (NOT DETECT) 07/12/23 22:37 Parainfluenza 4 (PCR) Not detected (NOT DETECT) 07/12/23 22:37 RSV Type A (PCR) Not detected (NOT DETECT) 07/12/23 22:37 RSV Type B (PCR) Not detected (NOT DETECT) 07/12/23 22:37 Entero/Rhino (PCR) Not detected (NOT DETECT) 07/12/23 22:37 SARS-CoV-2 (PCR) Not detected (NOT DETECT) 07/12/23 22:37 Discharge Plan Discharge Patient Disposition: Home Clinical Impression: UTI (urinary tract infection), Fever in adult, Constipation Condition: Stable Prescriptions: New cyclobenzaprine 10 mg tablet 10 mg PO TID Qty: 14 0RF prednisone 10 mg tablet 10 mg PO DAILY Qty: 7 0RF polyethylene glycol 3350 17 gram/dose powder 17 g PO DAILY Qty: 238 0RF No Action hydroxyzine HCl 50 mg tablet 50 mg PO TID promethazine 25 mg tablet 25 mg PO ONCE PRN Rx Instructions: Take 1 tablet by mouth daily as needed for nausea lurasidone [Latuda] 20 mg tablet 20 mg PO DAILY Rx Instructions: Take 1 tablet by mouth in the evening with supper. must administer with food (at least 350 calories) prazosin 1 mg capsule 1 mg PO ONCE Rx Instructions: Take 1 capsule by mouth at bedtime for nightmares. buspirone 15 mg tablet 15 mg PO QID Rx Instructions: Take 1 tablet by mouth four times daily. hydrocodone-acetaminophen 10-325 mg tablet 1 tab PO Q8H PRN Rx Instructions: Take 1 tablet by mouth three times daily as needed. melatonin 10 mg capsule 10 mg PO DAILY diphenhydramine HCl [Benadryl] 25 mg capsule 25 mg PO TID PRN diclofenac sodium [Arthritis Pain (diclofenac)] 1 % gel 2 g topical QID Rx Instructions: apply to single elbow, wrist or hand; for hand includes palm/fingers/back of hand albuterol sulfate 90 mcg/actuation HFA aerosol inhaler 2 puff inhalation QID PRN (Reason: shortness of breath or wheezing) Qty: 6.7 5RF tizanidine 4 mg capsule 4 mg PO TID PRN (Reason: muscle spasticity) Qty: 90 5RF Rx Instructions: Take 1 tablet by mouth three times daily as needed for muscle spasms. ketorolac 10 mg tablet 10 mg PO QID PRN (Reason: pain) 5 Days Qty: 20 0RF clindamycin HCl 300 mg capsule 300 mg PO TID Qty: 30 0RF rosuvastatin 20 mg tablet 20 mg PO DAILY Qty: 90 1RF Rx Instructions: bedtime levothyroxine 25 mcg capsule 25 mcg PO DAILY Qty: 90 1RF prednisone 10 mg tablets,dose pack See Rx Instructions PO PER PKG DIR Qty: 21 0RF Rx Instructions: PO PER PKG DIR pantoprazole [Protonix] 40 mg tablet,delayed release (DR/EC) 40 mg PO DAILY Qty: 30 2RF valsartan 80 mg tablet 80 mg PO .daily am Qty: 90 1RF Rx Instructions: with 40 mg pm to make 120 mg daily valsartan 40 mg tablet 40 mg PO .daily pm Qty: 90 1RF Rx Instructions: with 80 mg am to make 120 mg daily potassium chloride [Klor-Con 10] 10 mEq tablet extended release 10 meq PO DAILY Qty: 30 0RF cefdinir 300 mg capsule 300 mg PO BID 7 Days Qty: 14 0RF Discharge Orders: Discharge ED (Routine); Ordered 07/12/23 Ordered By: Rocio Gonsalves Referrals: Selam Ghosh FNP-C [Primary Care Provider] - Discharge Diet: Usual diet Discharge Activity: Increase activity as tolerated Patient Instructions: Constipation - Adult, Urinary Tract Infection in Women (ED), Fever in Adults (ED) Activity Restrictions/Additional Instructions: Overall, your lab work is stable and somewhat improved from a couple days ago. Your urinalysis still shows a small amount of bacteria present in your urine however, it is again improved from a couple days ago. I encourage you to continue taking your antibiotics as prescribed as it does seem to be working. We are running cultures off of your lab work and your urine specimens from today to evaluate further. I think that your worsening symptoms and fever may be related to a superimposed viral illness and, we are running a respiratory panel to check further. We should have these results in several hours. Your chest x- ray shows no signs of any concerns for accumulation concerning for pneumonia. Your abdominal scan does show a significant amount of retained stool across her upper abdomen which is often felt in your mid back as this is all at the same level in your abdomen. I am providing you medication called polyethylene glycol. 1 capful of this medication is equal to 17 g. For the next day or 2 I recommend taking a capful of medication 2 or 3 times a day mixed in 8 ounces of clear fluids to be drink all at once. I also encourage you to increase your clear fluid intake substantially during this time. I am providing you medication which will also help with your overall body aches. I encourage you to follow-up with your primary care doctor at the end of the week for recheck. However, if you are unable to tolerate medications or have change or worsening in your symptoms, you need to be seen and reevaluated back in the ER. Coding Level of Care Code ED [employer] for Pooja Neal
[2023-07-12 20:08] LABS: Basophils % 0.3 %; Hematocrit 37.8 % (36-47); Lymphocytes # 1.3 10^3/uL (0.8-4.8); Lymphocytes % 32.6 %; Mean Corpuscular HGB Conc 34.7 g/dL (30-55); Mean Corpuscular Hemoglobin 32.4 pg (27-33); Mean Corpuscular Volume 93.6 fl (85-98); Mean Platelet Volume 13.1 fL (7.4-10.4); Monocytes # 0.1 10^3/uL (0.2-0.9); Monocytes % 3.3 %; Neutrophils # 2.43 10^3/uL (1.8-7.7); Neutrophils % 62.5 %; Nucleated Red Blood Cells % 0 %; Platelet Count 203 10^3/cmm (157-399); Red Blood Count 4.04 10^6/uL (3.85-5.65); Red Cell Distribution Width 13.7 % (12.1-15.1); White Blood Count 3.89 10^3/uL (3.29-11.43)
[2023-07-12] MEDS: ketorolac 30 mg/mL INJ 15 MG IVP (20:11)
[2023-07-12] MEDS: diphenhydrAMINE 50 mg/mL SDV 1mL IVP (20:11)
[2023-07-12 20:27] LABS: Lactic Sepsis W/Reflex 2.1 mmol/L (0.5-2.2)
[2023-07-12 20:28] LABS: Alanine Aminotransferase 15 U/L (0-33); Albumin Level 3.4 g/dL (3.5-5.2); Alkaline Phosphatase 270 U/L (35-105); Anion Gap 14.2 (5-19); Aspartate Amino Transferase 26 U/L (0-32); Blood Urea Nitrogen 9 mg/dL (6-20); Calcium 8.1 mg/dL (8.5-10.5); Carbon Dioxide 23 mmol/L (22-29); Chloride 103 mmol/L (98-107); Globulin 2.7 g/dL (1.3-4.6); Glomerular Filtration Rate 108.1 mL/min (90-130); Glucose 97 mg/dL (65-115); Osmolality Calculated 283 mOsm/kg (285-295); Potassium 3.2 mmol/L (3.5-5.1); Sodium 137 mmol/L (136-145); Total Bilirubin 0.3 mg/dL (0.15-1.2); Total Protein 6.1 g/dL (6.6-8.7)
[2023-07-12 20:33] LABS: Procalcitonin 0.22 ng/mL (0-0.5)
[2023-07-12 20:38] LABS: Bilirubin Urine 1+ (Negative); Blood Urine 2+ (Negative); Glucose Urine UA Norm (Normal); Ketones Urine 1+ (Negative); Leukocyte Esterase Urine Negative (Negative); Nitrate Urine Negative (Negative); Protein Urine Neg (Negative); Specific Gravity, Urine 1.015 (1.005-1.030); Urine Appearance Clear (CLEAR); Urine Color Yellow (Yellow); Urobilinogen Urine 1 mg/dL (Negative); pH Urine 6 (5-7)
[2023-07-12 20:39] LABS: Add Urine Microscopic? YES; Bacteria Urine 1+ /hpf; Mucus Urine 2+ /hpf; RBC Urine 0-4 /hpf (0-2)
[2023-07-12 20:40] LABS: Add Urine Culture? No
--- NOTE | 2023-07-12 21:21 | XRR_ITS ---
PROCEDURE INFORMATION: Exam: XR Chest Exam date and time: 07/12/2023 9:27 PM Age: 43 years old Clinical indication: Fever; Additional info: Fever, fever, back pain TECHNIQUE: Imaging protocol: Radiologic exam of the chest. Views: 1 view. COMPARISON: CR (CHEST, ) 07/08/2023 6:19 PM FINDINGS: Lungs: Calcified granuloma in the left lobe laterally redemonstrated and similar. No focal consolidation. Pleural spaces: Unremarkable. No pleural effusion. No pneumothorax. Heart/Mediastinum: Unremarkable. No cardiomegaly. Bones/joints: Unremarkable. XR/XR chest 1V 30053 IMPRESSION: No focal consolidation.
--- NOTE | 2023-07-12 21:22 | CTR_ITS ---
PROCEDURE INFORMATION: Exam: CT Abdomen And Pelvis With Contrast Exam date and time: 07/12/2023 9:41 PM Age: 43 years old Clinical indication: Fever; Prior surgery; Surgery date: 6+ months; Surgery type: Appy; Additional info: Fever, CVA tenderness, on abx for UTI with unremarkable ua today, TECHNIQUE: Imaging protocol: Computed tomography of the abdomen and pelvis with contrast. Radiation optimization: All CT scans at this facility use at least one of these dose optimization techniques: automated exposure control; mA and/or kV adjustment per patient size (includes targeted exams where dose is matched to clinical indication); or iterative reconstruction. Contrast material: OMNI 350; Contrast volume: 100 ml; Contrast route: INTRAVENOUS (IV); COMPARISON: CR (CHEST, ) 07/12/2023 9:27 PM RADIATION DOSE METRICS: Total DLP (mGy-cm): 414 FINDINGS: Liver: Normal. No mass. Gallbladder and bile ducts: Normal. No calcified stones. No ductal dilation. Pancreas: Normal. No ductal dilation. Spleen: Normal. No splenomegaly. Adrenal glands: Normal. No mass. Kidneys and ureters: Normal. No hydronephrosis. Stomach and bowel: Unremarkable. No obstruction. No mucosal thickening. Appendix: The appendix is not visualized but there are no secondary signs of acute appendicitis. Intraperitoneal space: Unremarkable. No free air. No significant fluid collection. Vasculature: Unremarkable. No abdominal aortic aneurysm. Lymph nodes: Unremarkable. No enlarged lymph nodes. Urinary bladder: Unremarkable as visualized. Reproductive: Unremarkable as visualized. Bones/joints: Unremarkable. No acute fracture. Soft tissues: Unremarkable. CT/CT abdomen pelvis w con* [id number] IMPRESSION: 1. No bowel obstruction or inflammatory process associated with the bowel. 2. No free air or significant free fluid in the abdomen or pelvis. 3. The appendix is not visualized but there are no secondary signs of acute appendicitis.
[2023-07-12] MEDS: iohexol 350 mg/mL 500 mL Btl (per mL) IV (21:37)
[2023-07-12 21:52] LABS: Reflex Lactate Order REFLEX LACTIC ORDERD
[2023-07-12 22:40] VITALS: BP 124/77; PULSE 74; O2SAT 98
[2023-07-12] MEDS: predniSONE 20 mg Tablet PO (22:54)
[2023-07-12] MEDS: orphenadrine 30 mg/mL Inj 2 mL 60 MG IVP (22:56)
[2023-07-12 23:38] LABS: Lactic Acid level (Lactate) 0.9 mmol/L (0.5-2.2)
[2023-07-12 23:51] VITALS: BP 103/57; PULSE 75; O2SAT 98
[2023-07-13 00:27] LABS: Adenovirus Not Detected (NOT DETECT); Chlamydia Pneumoniae Not Detected (NOT DETECT); Coronavirus 229E,HKU1,NL63,OC4 Not Detected (NOT DETECT); Human Metapneumovirus Not Detected (NOT DETECT); Human Rhinovirus/Enterovirus Not Detected (NOT DETECT); Influenza A Not Detected (NOT DETECT); Influenza A H1 Not Detected (NOT DETECT); Influenza A H1-2009 Not Detected (NOT DETECT); Influenza A H3 Not Detected (NOT DETECT); Influenza B Not Detected (NOT DETECT); Mycoplasma Pneumoniae Not Detected (NOT DETECT); Parainfluenza Virus Type 1 Not Detected (NOT DETECT); Parainfluenza Virus Type 2 Not Detected (NOT DETECT); Parainfluenza Virus Type 3 Not Detected (NOT DETECT); Parainfluenza Virus Type 4 Not Detected (NOT DETECT); Respiratory Syncytial Virus A Not Detected (NOT DETECT); Respiratory Syncytial Virus B Not Detected (NOT DETECT); SARS-COV-2 Not Detected (NOT DETECT)
== END 2023-07-12 23:51 | disposition home or self-care (01) ==
PROVIDERS: Emergency Medicine; Emergency Provider Physician Assistant; PCP Nurse Practitioner Family
DX: N39.0 Urinary tract infection, site not specified (principal); K59.00 Constipation, unspecified; Z11.52 Encounter for screening for COVID-19; Z72.0 Tobacco use; E78.5 Hyperlipidemia, unspecified; I10 Essential (primary) hypertension
CPT/HCPCS: 36415; 71045; 74177; 80053; 81001; 83605; 84145; 85025; 87040; 87086; 87486; 87581; 87633; 96361; 96374; 96375; 99285; J1200; J1885; J2360; J2765; J7030; J7512; Q9967

== ENCOUNTER → 2023-12-08 15:31 | Outpatient (BNVA) | payer MEDICARE, SELFPAY | PROVIDERS: PCP Nurse Practitioner Family; Visit Provider Nurse Practitioner Family | DX: R39.9 Unspecified symptoms and signs involving the genitourinary system (principal); E03.9 Hypothyroidism, unspecified; E78.5 Hyperlipidemia, unspecified; G89.29 Other chronic pain; I10 Essential (primary) hypertension; K21.9 Gastro-esophageal reflux disease without esophagitis | CPT/HCPCS: 80053; 80061; 81000; 84443; 85025 ==

== ENCOUNTER → 2024-03-22 10:47 | Outpatient (BNVA) | payer MEDICARE, SELFPAY | PROVIDERS: PCP Nurse Practitioner Family; Visit Provider Nurse Practitioner | DX: I10 Essential (primary) hypertension (principal) | CPT/HCPCS: 80048; 81000 ==

== ENCOUNTER 2024-05-11 13:12 | Outpatient (CLI) | payer MEDICARE, SELFPAY ==
--- NOTE | 2024-05-11 | MM_ITS ---
WS: [id number] Bilateral screening 3D tomosynthesis digital mammogram, 05/11/2024 1:42 PM Clinical Data: screening Comparison: None. Findings: No spiculated masses or clustered calcifications are seen. There are no secondary signs of carcinoma . MM/MM scr BI tomosynthesis [id number] Impression: Negative bilateral mammogram with no prior exam for review. Recommend annual screening mammograms. BIRADS: 1 - Negative FOLLOW UP: 1 Year Follow-up DENSITY: The breasts are heterogeneously dense, which may obscure small masses. The CAD loom checker was used
--- NOTE | 2024-05-11 13:30 | US_ITS ---
WS: [id number] THYROID ULTRASOUND HISTORY: E03.9 - Hypothyroidism, unspecified COMPARISON: None available. Right lobe: 1.3 cm x 1.8 cm x 4.6 cm (w x ap x l). Volume: 5.4 cm3. Normal size and echotexture. No significant are dominant nodules are present. Left lobe: 1.4 cm x 1.3 cm x 4.6 cm (w x ap x l). Volume: 4.0 cm3. Normal size and echotexture. No significant or dominant nodules are present. Isthmus: 0.2 cm. US/US thyroid 51436 IMPRESSION: Normal thyroid ultrasound.
== END 2024-05-11 13:13 | disposition home or self-care (01) ==
LOC: RAD 13:13
PROVIDERS: PCP Nurse Practitioner; Visit Provider Nurse Practitioner
DX: Z12.31 Encounter for screening mammogram for malignant neoplasm of breast (principal); R92.333 Mammographic heterogeneous density, bilateral breasts; E03.9 Hypothyroidism, unspecified
CPT/HCPCS: 76536; 77063; 77067

== ENCOUNTER → 2024-08-15 15:07 | Outpatient (BNVA) | payer MEDICARE, SELFPAY | PROVIDERS: PCP Nurse Practitioner; Visit Provider Nurse Practitioner | DX: E03.8 Other specified hypothyroidism (principal); F43.10 Post-traumatic stress disorder, unspecified; K21.9 Gastro-esophageal reflux disease without esophagitis; E78.2 Mixed hyperlipidemia; M79.7 Fibromyalgia; I10 Essential (primary) hypertension; E55.9 Vitamin D deficiency, unspecified; Z79.899 Other long term (current) drug therapy | CPT/HCPCS: 80053; 80061; 82306; 84443; 85025 ==

== ENCOUNTER → 2025-02-14 15:10 | Outpatient (BNVA) | payer MEDICARE, SELFPAY | PROVIDERS: PCP Nurse Practitioner; Visit Provider Nurse Practitioner | DX: E03.8 Other specified hypothyroidism (principal); E55.9 Vitamin D deficiency, unspecified | CPT/HCPCS: 80053; 80061; 82306; 84443 ==